=== PATIENT | male | born 1995 | race African-American/Black ===

== ENCOUNTER 2021-07-13 04:03 | Inpatient (IN) | payer MEDICAID, SELFPAY ==
[~2021-07-13] VITALS: Ht 180.3 cm; Wt 134.7 kg
[2021-07-13 04:27] VITALS: BP 157/76
--- NOTE | 2021-07-13 04:27 | NUR ---
pt bib self from home c/o epigastric pain started 24hrs ago. took peptobismal with no relief. +N/V looks like peptobismal or clear liquid. AAOx4. patient has not eaten anything different from before. Sudden onset. pmh: htn, asthma allergies: amoxicillin
--- NOTE | 2021-07-13 04:33 | NUR ---
patient to the bathroom for urine collection.
--- NOTE | 2021-07-13 04:34 | NUR ---
patient will go to lobby
[2021-07-13] MEDS ORDERED: ONDANSETRON 4 MG/2 ML VIAL IVP ONE (04:40)
[2021-07-13] MEDS ORDERED: MORPHINE SULFATE 2 MG/ML SYR IVP ONE (04:40)
[2021-07-13] MEDS ORDERED: NACL 0.9% 1,000 ML IV SCH (04:40)
--- NOTE | 2021-07-13 05:27 | NUR ---
PT TAKEN TO ULTRASOUND
[2021-07-13] MEDS ORDERED: ONDANSETRON 4 MG/2 ML VIAL ONE (06:34)
[2021-07-13] MEDS ORDERED: MORPHINE SULFATE 2 MG/ML SYR ONE (06:34)
--- NOTE | 2021-07-13 06:45 | NUR ---
PT MOVED TO ER 14
--- NOTE | 2021-07-13 07:21 | NUR ---
Pt report given to Kim MORAN. Transfer of care at this time.
--- NOTE | 2021-07-13 07:22 | NUR ---
REPORT RECEIVED FROM STEPHAN RN, TRANSFER OF CARE AT THIS TIME. PT LAYING IN BED WITH EVEN AND UNLABORED RESPIRATIONS OBSERVED, NO SIGNS OF DISTRESS. A/O X4, GCS 15. WILL CONTINUE TO MONITOR
--- NOTE | 2021-07-13 07:29 | NUR ---
JOAQUÍN VAZQUEZ COLLECTED AND WALKED TO LAB
[2021-07-13 07:47] LABS: BASOPHILS % (AUTO) 0.4 % (0.0-2.0); EOSINOPHILS % (AUTO) 0.1 % (0.0-4.0); HEMATOCRIT 48.1 % (36-52); HEMOGLOBIN 16.5 g/dL (12.0-18.0); LYMPHOCYTES # (AUTO) 1.5 K/uL (2.0-11.5); LYMPHOCYTES % (AUTO) 12.8 % (20.5-51.1); MEAN CORPUSCULAR HEMOGLOBIN 32 pg (27-31); MEAN CORPUSCULAR HGB CONC 34 g/dL (33-37); MEAN CORPUSCULAR VOLUME 92.1 fL (80-94); MONOCYTES % (AUTO) 8.6 % (1.7-9.3); NEUTROPHILS # (AUTO) 8.8 K/uL (1.8-7.7); NEUTROPHILS % (AUTO) 78.1 % (42.2-75.2); PLATELET COUNT (AUTO) 298 K/uL (140-450); RED BLOOD CELL COUNT(AUTO) 5.22 MIL/uL (4.20-6.10); RED CELL DISTRIBUTION WIDTH 14.1 % (11.6-13.7); WHITE BLOOD COUNT (AUTO) 11.3 K/uL (4.8-10.8)
[2021-07-13 08:27] LABS: ANION GAP 17.4 (8-16); CARBON DIOXIDE 26.3 mmol/L (21-32); POTASSIUM 3.7 mmol/L (3.5-5.1); TOTAL BILIRUBIN 0.4 mg/dL (0.0-1.0)
[2021-07-13] MEDS ORDERED: ONDANSETRON 4 MG/2 ML VIAL IM/IVP PRN (09:15)
[2021-07-13] MEDS ORDERED: MORPHINE SULFATE 2 MG/ML SYR IVP PRN (09:15)
[2021-07-13] MEDS ORDERED: POTASSIUM CHLORIDE 10 MEQ TABER PO PRN (09:15)
[2021-07-13] MEDS ORDERED: DOCUSATE SODIUM 100 MG GELCAP PO PRN (09:15)
[2021-07-13] MEDS ORDERED: MAG SULF 2000 MG/WATER PREMIX 50 ML IV PRN (09:15)
[2021-07-13] MEDS ORDERED: ACETAMINOPHEN 325 MG TAB PO PRN (09:15)
[2021-07-13] MEDS ORDERED: HYDROcodone/APAP 5/325 MG 1 TAB TAB PO PRN (09:15)
[2021-07-13] MEDS ORDERED: SODIUM PHOS / POTASSIUM PHOS 1 PKT PDR PO PRN (09:15)
[2021-07-13] MEDS: PANTOPRAZOLE 40 MG INJ VIAL IVP SCH (10:01)
[2021-07-13] MEDS: LACTATED RINGERS 1,000 ML IV SCH ×3 (10:09→23:10)
--- NOTE | 2021-07-13 10:12 | NUR ---
PT C/O 8/10 ABDOMINAL PAIN AND REQUESTING PAIN MEDS. PT MEDICATED PER PRN MORPHINE ORDER.
[2021-07-13 12:13] LABS: MAGNESIUM 1.9 mg/dL (1.8-2.4); PHOSPHORUS 3.9 mg/dL (2.5-4.9)
--- NOTE | 2021-07-13 12:50 | NUR ---
DR CASTRO AT BEDSIDE EVALUATING PT AT THIS TIME.
[2021-07-13] MEDS ORDERED: hydrALAZINE 20 MG/ML VIAL IVP PRN (14:45)
--- NOTE | 2021-07-13 15:04 | NUR ---
PT C/O FEELING REALLY HOT AND SOB. TEMP 99.4 AND SPO2 98% RA. PT REPORTS USING ALBUTEROL WHEN HE FEELS LIKE THIS. LUNG SOUNDS CLEAR, WILL CONTACT DR CASTRO
[2021-07-13] MEDS ORDERED: ALBUTEROL SULFATE/IPRATROPIU 3 ML SOL IH PRN (16:25)
--- NOTE | 2021-07-13 16:35 | NUR ---
RT AT BEDSIDE FOR BREATHING TREATMENT
--- NOTE | 2021-07-13 16:39 | NUR ---
PATIENT HAS BEEN SCREENED AND CATEGORIZED LOW NUTRITION RISK. PATIENT WILL BE SEEN WITHIN 7 DAYS OF ADMISSION. 07/19/[address]
[2021-07-13] MEDS: MORPHINE SULFATE 2 MG/ML SYR IVP PRN ×2 (17:07→21:38)
[2021-07-13] MEDS ORDERED: LISI20TA29 PO (18:36)
[2021-07-13 18:58] LABS: APPEARANCE,URINE CLEAR (CLEAR); BILIRUBIN,URINE NEGATIVE (NEGATIVE); BLOOD, URINE NEGATIVE (NEGATIVE); COLOR,URINE YELLOW (YELLOW); LEUKOCYTE ESTERASE ,URINE NEGATIVE (NEGATIVE); NITRITE, URINE NEGATIVE (NEGATIVE); UGLUCOSE NEGATIVE (NEGATIVE)
[2021-07-13 19:11] LABS: BARBITURATE, URINE NEGATIVE ng/ml (NEG <=200); BENZODIAZEPINE, URINE NEGATIVE ng/mL (NEG <=200); CANNABINOID, URINE POSITIVE ng/mL (NEG <=50); COCAINE, URINE NEGATIVE ng/mL (NEG <=300); OPIATE, URINE NEGATIVE ng/mL (NEG <=2000); PHENCYCLIDINE SCREEN,URINE NEGATIVE ng/mL (NEG <=25)
--- NOTE | 2021-07-13 19:30 | NUR ---
REPORT GIVEN TO MARNIE CR, TRANSFER OF CARE AT THIS TIME
--- NOTE | 2021-07-13 20:00 | NUR ---
REPORT RECEIVED FROM SHAYE LORA AT THIS TIME.
--- NOTE | 2021-07-13 20:11 | NUR ---
PT LAYING SUPINE IN HALLWAY BED, HOB SLIGHTLY ELEVATED. BED LOCKED IN LOWEST POSITION W X2 SIDERAILS UP FOR PT SAFETY. PT REPORTS FEELING BETTER, REPORTS SLIGHT HEADACHE, AND SOME DISCOMFORT TO ABDOMEN BUT NO PAIN AT THIS TIME. PT DENIES ANY SOB, NAUSEA OR OTHER SYMPTOMS. PT ALSO REPORTS APPETITE IS RETURNING. PROVIDED PT W WATER TO RINSE MOUTH ONLY. ALL NEEDS MET AT THIS TIME. VSS. BREATHING EVEN AND UNLABORED. NAD NOTED, WILL CONTINUE TO MONITOR. PT HAS LR RUNNING TO AC.
--- NOTE | 2021-07-13 21:39 | NUR ---
PT C/O OF INCREASING ABDOMINAL PAIN AT THIS TIME, REQUESTING PAIN MEDICATION. PT MEDICATED FOR PAIN. ALL NEEDS MET.
--- NOTE | 2021-07-13 23:26 | NUR ---
PT MOVED TO BED 4, CONNECTED TO MONITOR.
--- NOTE | 2021-07-14 00:46 | NUR ---
PT APPEARS TO BE RESTING W EYES CLOSED IN L LATERAL POSITION. BED LOCKED IN LOWEST POSITION W X2 SIDERAILS UP FOR PT SAFETY. PT CONNECTED TO MONITOR W VSS. BREATHING EVEN AND UNLABORED. NAD, NOTED, WILL CONTINUE TO MONITOR. LR RUNNING ORDERED.
--- NOTE | 2021-07-14 01:22 | NUR ---
PT WALKED TO BATHROOM
--- NOTE | 2021-07-14 03:09 | NUR ---
Pt report given to SHAYE DYE. Transfer of care at this time.
--- NOTE | 2021-07-14 03:20 | NUR ---
PT C/O OF ONGOING ABDOMINAL PAIN. OTHERWISE OK. VSS.
[2021-07-14] MEDS: MORPHINE SULFATE 2 MG/ML SYR IVP PRN (03:33)
[2021-07-14] MEDS: LACTATED RINGERS 1,000 ML IV SCH (06:52)
--- NOTE | 2021-07-14 07:30 | NUR ---
RECEIVED REPORT FROM MARNIE CR, TRANSFER OF CARE AT THIS TIME. PT LAYING IN BED, DENIES ANY COMPLAINTS AT THIS TIME. VSS, NO SIGNS OF DISTRESS. WILL CONTINUE TO MONITOR
[2021-07-14 09:11] LABS: BASOPHILS % (AUTO) 0.4 % (0.0-2.0); EOSINOPHILS % (AUTO) 0.4 % (0.0-4.0); HEMATOCRIT 47.2 % (36-52); LYMPHOCYTES # (AUTO) 1.7 K/uL (2.0-11.5); LYMPHOCYTES % (AUTO) 19.8 % (20.5-51.1); MEAN CORPUSCULAR HEMOGLOBIN 32 pg (27-31); MEAN CORPUSCULAR HGB CONC 34 g/dL (33-37); MEAN CORPUSCULAR VOLUME 93.1 fL (80-94); MONOCYTES # (AUTO) 0.9 K/uL (0.8-1.0); MONOCYTES % (AUTO) 10.4 % (1.7-9.3); NEUTROPHILS # (AUTO) 5.9 K/uL (1.8-7.7); PLATELET COUNT (AUTO) 260 K/uL (140-450); RED BLOOD CELL COUNT(AUTO) 5.07 MIL/uL (4.20-6.10); RED CELL DISTRIBUTION WIDTH 14.3 % (11.6-13.7); WHITE BLOOD COUNT (AUTO) 8.6 K/uL (4.8-10.8)
[2021-07-14 10:13] LABS: CARBON DIOXIDE 28.4 mmol/L (21-32); POTASSIUM 3.4 mmol/L (3.5-5.1)
[2021-07-14] MEDS: PANTOPRAZOLE 40 MG INJ VIAL IVP SCH (10:44)
[2021-07-14] MEDS ORDERED: amLODIPine 5 MG TAB PO SCH (12:15)
--- NOTE | 2021-07-14 13:13 | NUR ---
DR CASTRO AT BEDSIDE SPEAKING TO PT. PT TOLERATING PO WITHOUT ANY N/V OR PAIN. PT BEING DC HOME. IV REMOVED NO ACTIVE BLEEDING NOTED. NO ACUTE DISTRESS NOTED. STABLE ON DC.
[2021-07-14 13:15] VITALS: BP 165/105
[2021-07-14 13:27] VITALS: BP 165/105
--- NOTE | 2021-07-14 13:27 | NUR ---
PT DISCHARGED AT THIS TIME. VSS. DISCHARGE INSTRUCTIONS GIVEN, ALL ANSWERS QUESTIONS.
== END 2021-07-14 13:27 | disposition home or self-care (01) | DRG 282 ==
LOC: MED 04:03 → MMU 08:17
PROVIDERS: ADMIT Hospitalist; ATTEND Hospitalist
DX: K85.90 Acute pancreatitis without necrosis or infection, unspecified (principal); K76.0 Fatty (change of) liver, not elsewhere classified; E66.01 Morbid (severe) obesity due to excess calories; I10 Essential (primary) hypertension; J45.909 Unspecified asthma, uncomplicated; Z20.822 Contact with and (suspected) exposure to COVID-19; Z88.1 Allergy status to other antibiotic agents; Z79.899 Other long term (current) drug therapy; Z87.442 Personal history of urinary calculi; Z68.41 Body mass index [BMI] 40.0-44.9, adult
CPT/HCPCS: 36415; 76705; 80048; 80053; 80305; 81003; 82140; 82150; 83690; 83735; 84100; 84484; 85025; 96361; 96374; 99285; C9113; G0482; J2270; J2405; Q0092

== ENCOUNTER 2021-07-18 08:26 | Emergency (ER) | payer MEDICAID, SELFPAY ==
[~2021-07-18] VITALS: Ht 180.3 cm; Wt 129.3 kg
[~2021-07-18 08:26] MED LIST: LISI20TA29 PO
[2021-07-18 08:41] VITALS: BP 152/83
--- NOTE | 2021-07-18 09:14 | NUR ---
C/O 5/10 LEFT BIG TOE PAIN & SWELLING X 4 DAYS. BP 152/83 AT THIS TIME.DENIES TRAUMA RECENTLY. PMH: HTN, ASTHMA FAMILY HX: GOUT
[2021-07-18] MEDS ORDERED: COLC-30 PO (09:54)
[2021-07-18] MEDS ORDERED: IBUP-1842 PO (09:54)
[2021-07-18 10:10] VITALS: BP 146/91
--- NOTE | 2021-07-18 10:11 | NUR ---
Patient discharged with v/s stable. Written and verbal after care instructions given and explained. Patient alert, oriented and verbalized understanding of instructions. Ambulatory with steady gait. All questions addressed prior to discharge. ID band removed. Patient advised to follow up with PMD. Rx of IBUPROFEN AND COLCHICINE given. Patient educated on indication of medication including possible reaction and side effects. Opportunity to ask questions provided and answered.
== END 2021-07-18 10:10 | disposition home or self-care (01) ==
LOC: MED 08:26
DX: M10.072 Idiopathic gout, left ankle and foot (principal); J45.909 Unspecified asthma, uncomplicated; I11.0 Hypertensive heart disease with heart failure; Z88.0 Allergy status to penicillin
CPT/HCPCS: 73660; 99283

== ENCOUNTER 2024-02-26 04:13 | Emergency (ER) | payer MEDICAID, OTHER ==
[~2024-02-26] VITALS: Ht 180.3 cm; Wt 122.5 kg
[~2024-02-26 04:13] MED LIST changes: +COLC-30 PO; +IBUP-1842 PO
[2024-02-26 04:20] VITALS: BP 153/97; PULSE 65; RESP 16; TEMP 96.4; O2SAT 99
[2024-02-26] MEDS: ALBUTEROL 0.083% 2.5 MG/3 ML NEBU INH ONE (04:42)
[2024-02-26 04:47] VITALS: PULSE 65; RESP 18; O2SAT 100
[2024-02-26 04:49] VITALS: PULSE 65; RESP 18; O2SAT 100
[2024-02-26] MEDS ORDERED: PRED20TA5 PO (06:15)
[2024-02-26] MEDS ORDERED: FEXO1TAB12 PO (06:15)
[2024-02-26] MEDS ORDERED: ALBU0.0912 IH (06:15)
[2024-02-26] MEDS ORDERED: AMLO10TA PO (06:15)
[2024-02-26 06:23] VITALS: BP 153/97; PULSE 65; RESP 18; TEMP 96.4; O2SAT 100
== END 2024-02-26 06:23 | disposition home or self-care (01) ==
LOC: MED 04:13
DX: J45.901 Unspecified asthma with (acute) exacerbation (principal); J30.2 Other seasonal allergic rhinitis; I10 Essential (primary) hypertension; Z79.1 Long term (current) use of non-steroidal anti-inflammatories (NSAID); Z79.899 Other long term (current) drug therapy; Z88.0 Allergy status to penicillin
CPT/HCPCS: 94640; 99283; J7613